=== PATIENT | female | born 1980 | race Caucasian/White ===

== ENCOUNTER 2018-01-26 15:00 | Inpatient (IN) | payer OTHER ==
[2018-01-26] MEDS ORDERED: LACTATED RINGERS 1,000 ML ONE (15:41)
[2018-01-26] MEDS ORDERED: POLYCILLIN/NS 2 GM/100 ML 2 GM/100 ML BAG IV ONE (16:01)
[2018-01-26] MEDS ORDERED: AMPICILLIN/NS 1 GM/50 ML 1 GM/50 ML BAG IV SCH (16:01)
[2018-01-26] MEDS ORDERED: LACTATED RINGERS 1,000 ML IV SCH ×2 (17:00→19:00)
[2018-01-26 17:57] LABS: Hematocrit 39.9 % (30.3-42.9); Hemoglobin 13.9 gm/dl (10.1-14.3); Mean Corpuscular HGB Conc 35 % (30-34); Mean Corpuscular Hemoglobin 32 pg (28-32); Mean Corpuscular Volume 93 fl (79-97); Platelet Count 209 K/mm3 (140-440); Red Blood Count 4.28 M/mm3 (3.65-5.03); Red Cell Distribution Width 12.8 % (13.2-15.2)
[2018-01-26] MEDS ORDERED: XYLOCAINE 2% INFILTRATI ONE (18:07)
[2018-01-26] MEDS ORDERED: BRETHINE SUB-Q PRN (18:07)
[2018-01-26] MEDS ORDERED: ePHEDrine SULFATE IV PRN (18:07)
[2018-01-26] MEDS ORDERED: SUBLIMAZE IV PRN (18:07)
[2018-01-26] MEDS ORDERED: MINERAL OIL PO PRN (18:07)
--- NOTE | 2018-01-26 18:15 | History and Physical Report ---
History of Present Illness Date of examination: 01/26/18 Date of admission: 01/26/18 16:55 Chief complaint: regular contractions History of present illness: 37y/o @ 37+6 weeks presents with regular uterine contractions and advanced cervical dilation. She denies leakage of fluid. care initiated care in the first trimester. Her course is complicated by AMA , GDMA2 (insulin-dependent); Left polycystic kidney. GBS negative. The patient is a patient of [facility] but was taken to [facility] for active labor. Past History Past Medical History: other (gestational diabetes) Past Surgical History: no surgical history Social history: - Obstetrical History Expected Date of Delivery: 02/10/18 Actual Gestation: 37 Week(s) 6 Day(s) : 7 Para: 4 Hx # Term Pregnancies: 4 Number of Pregnancies: 0 Spontaneous Abortions: 2 Induced : 4 Medications and Allergies Allergies Allergy/AdvReac Type Severity Reaction Status Date / Time No Known Allergies Allergy Verified 01/26/18 15:14 Home Medications Medication Instructions Recorded Confirmed Last Taken Type Acetaminophen/Codeine [Tylenol #3] 1 tab PO Q6H PRN #20 tab 10/09/14 Unknown Rx Ibuprofen [Motrin] 600 mg PO Q8H PRN #60 tablet 10/09/14 Unknown Rx RX: metFORMIN [Glucophage] 500 mg PO BID #60 tablet 10/09/14 Unknown Rx RX: metFORMIN [Glucophage] 500 mg PO DAILY #30 tablet 10/09/14 Unknown Rx Active Meds: Active Medications Ampicillin Sodium (Ampicillin/Ns 1 Gm/50 Ml) 1 gm in 50 mls @ 100 mls/hr IV Q4HR KRISTOFER; Protocol Lactated Ringer's (Lactated Ringers) 1,000 mls @ 125 mls/hr IV DIRECT KRISTOFER Review of Systems Genitourinary: pelvic pain, contractions - Vital Signs Vital signs: Vital Signs Pulse Pulse Ox 78 97 01/26/18 15:15 01/26/18 15:15 Temp Pulse Resp BP Pulse Ox 98.8 F 78 24 120/80 96 01/26/18 15:25 01/26/18 18:12 01/26/18 15:25 01/26/18 15:25 01/26/18 18:12 - Physical Exam Breasts: Positive: deferred Cardiovascular: Regular rate Lungs: Positive: Clear to auscultation - Obstetrical FHR: category 1 Uterine Contraction Monitor Mode: External Results Result Diagrams: 01/26/18 16:30 Abnormal lab results 01/26/18 Range/Units 16:30 MCHC 35 H (30-34) % RDW 12.8 L (13.2-15.2) % All other labs normal. Assessment and Plan - Patient Problems (1) Active labor at term Current Visit: Yes Status: Acute Plan to address problem: admit in active labor to L&D anticipate a vaginal delivery (2) Advanced maternal age (AMA) in Current Visit: Yes Status: Acute (3) Gestational diabetes Current Visit: Yes Status: Acute (4) polycystic kidney diagnosed prenatally Current Visit: Yes Status: Acute
[2018-01-26] MEDS ORDERED: PITOCin/NS 20 UNIT/1000ML DRIP 20 UNITS/1,000 ML BAG IV SCH (19:00)
[2018-01-26] MEDS ORDERED: TYLENOL PO PRN (19:37)
[2018-01-26] MEDS ORDERED: PHENERGAN PO PRN (19:37)
[2018-01-26] MEDS ORDERED: TUCKS PAD TP PRN (19:37)
[2018-01-26] MEDS ORDERED: ZOFRAN IV PRN (19:37)
[2018-01-26] MEDS ORDERED: MILK OF MAGNESIA PO PRN (19:37)
[2018-01-26] MEDS ORDERED: BENADRYL PO PRN (19:37)
[2018-01-26] MEDS ORDERED: PHENERGAN PR PRN (19:37)
[2018-01-26] MEDS ORDERED: LANSINOH TP PRN (19:37)
[2018-01-26] MEDS ORDERED: DULCOLAX PR PRN (19:37)
--- NOTE | 2018-01-26 19:37 | Procedure Note ---
OB Delivery Note - Delivery Date of Delivery: 01/26/18 Surgeon: MIYA FAJARDO Estimated blood loss: 100cc - Vaginal Delivery presentation: vertex Delivery position: OA Intrapartum events: none Delivery augmentation: rupture of membranes Delivery monitor: external FHT Route of delivery: Delivery placenta: spontaneous Delivery cord: 3 umbilical vessels Episiotomy: none Delivery laceration: none Delivery comments: Patient progressed to complete complete +2 and post deliver a liveborn male infant with Apgars of 8 and 9 weight 6 lbs. 7 oz. After delivery of the head the shoulders delivered without difficulty. The cord was clamped and cut 2 and the was placed on the patient's abdomen. The placenta delivered spontaneously intact with a three-vessel cord. No lacerations were noted. Estimated blood loss is 100 mL - Infant A at 1 minute: 8 at 5 minutes: 9 Infant Gender: Male (weight 6 lbs. 10 oz.)
[2018-01-26] MEDS ORDERED: SODIUM CHLORIDE FLUSH SYRINGE 10 ML IV NR (20:00)
[2018-01-26] MEDS: MOTRIN PO SCH (20:09)
[2018-01-26] MEDS ORDERED: METHERGINE IM ONE (22:15)
[2018-01-27] MEDS: NORCO 5/325 PO PRN ×2 (07:50→14:30)
[2018-01-27 08:16] LABS: Hematocrit 35.8 % (30.3-42.9); Hemoglobin 12.2 gm/dl (10.1-14.3)
--- NOTE | 2018-01-27 08:48 | Progress Note ---
Assessment and Plan - Patient Problems (1) Active labor at term Current Visit: Yes Status: Acute Plan to address problem: continue to monitor vaginal bleeding closely (2) Advanced maternal age (AMA) in Current Visit: Yes Status: Acute (3) Gestational diabetes Current Visit: Yes Status: Acute (4) polycystic kidney diagnosed prenatally Current Visit: Yes Status: Acute Subjective - Subjective Date of service: 01/27/18 Interval history: the patient experienced vaginal bleeding. Determined that patient may not have received adequate amount of pitocin. Bleeding is currently intermittent now. Pain is better controlled. Patient reports: appetite normal, voiding normally, pain well controlled : doing well Objective - Vital Signs Latest vital signs: Vital Signs Temp Temp Pulse Resp BP BP Pulse Ox 01/27/18 06:06 98.5 F 75 18 106/56 01/27/18 00:00 97.7 F 82 18 122/63 01/26/18 22:59 81 132/70 01/26/18 22:47 67 89 01/26/18 22:29 75 106/59 01/26/18 22:14 85 102/55 01/26/18 21:59 73 108/59 01/26/18 21:32 86 98/53 01/26/18 21:17 106 H 94/52 01/26/18 21:03 98.3 F 77 18 92/48 92/48 01/26/18 20:48 83 18 110/55 110/55 01/26/18 20:17 72 18 108/55 108/55 01/26/18 20:03 72 18 108/69 108/69 01/26/18 19:48 97.3 F L 150 H 50 H 01/26/18 19:47 89 18 145/69 145/69 18 19:34 103 H 142/88 18 19:05 74 150/79 18 18:27 88 95 18 18:24 71 90 18 18:21 83 97 18 18:17 65 99 18 18:12 78 96 18 18:07 75 100 18 18:01 86 97 18 17:57 84 97 18 17:52 74 97 18 17:46 72 98 18 17:42 80 97 18/18 17:36 74 98 18/18 17:32 69 98 18/18 17:28 78 93 1818 17:27 79 97 18/18 17:22 81 91 18/18 17:17 75 98 1818 17:14 77 94 1818 17:11 73 98 1818 17:09 83 92 1818 17:07 72 98 18 17:02 79 98 1818 16:56 79 98 1818 16:55 70 94 1818 16:52 81 98 1818 16:46 80 98 1818 16:42 72 98 1818 16:36 72 98 1818 16:31 70 98 1818 16:05 74 100 18 16:00 80 97 1818 15:55 80 97 18 15:50 83 98 18 15:45 74 98 1818 15:40 82 98 1818 15:35 80 97 1818 15:30 75 99 1818 15:25 98.8 F 82 24 120/80 99 1818 15:21 83 120/80 1818 15:20 80 98 1818 15:15 78 97 Intake and Output 18 //18 18 22:59 06:59 14:59 Intake Total 960 Output Total 800 700 Balance -800 260 Intake: Oral 720 Intake, Free Water 240 Output: Urine 800 700 Indwelling Catheter 800 700 Other: Total, Intake Amount 480 Total, Output Amount 800 700 # Voids Indwelling Catheter 1 Weight 80.286 kg Estimated Blood Loss 100 - Exam Uterus: Present: normal, firm - Labs Labs: Abnormal lab results 01/26/18 Range/Units 16:30 MCHC 35 H (30-34) % RDW 12.8 L (13.2-15.2) %
--- NOTE | 2018-01-27 08:51 | Discharge Summary ---
Providers - Providers Date of Admission: 01/26/18 16:55 Date of discharge: 01/28/18 Attending physician: MIYA FAJARDO Primary care physician: MIYA FAJARDO Hospitalization Reason for admission: active labor Delivery: complications: uterine atony Discharge diagnosis: IUP at term delivered [place] baby: male Hospital course: Patient was admitted in active labor and had a . Experienced a hemorrhage. Patient received methergine with improvement in her symptoms. Remainder of course was uncomplicated Condition at discharge: Good Disposition: DC-01 TO HOME OR SELFCARE - Discharge Diagnoses (1) Active labor at term Status: Acute (2) Advanced maternal age (AMA) in Status: Acute (3) Gestational diabetes Status: Acute (4) polycystic kidney diagnosed prenatally Status: Acute Plan - Discharge Medications Prescriptions: HYDROcodone/APAP 5-325 [Gan[place] 5/325] 1 each PO Q6HR PRN #30 tablet PRN Reason: Pain Ibuprofen [Motrin] 800 mg PO Q8HR PRN #60 tablet PRN Reason: Pain, Mild (1-3) - Provider Discharge Summary Activity: no sex for 6 weeks, no heavy lifting 4 weeks, no strenuous exercise Diet: routine Instructions: routine Additional instructions: [] Smoking cessation referral if applicable(refer to patient education folder for contact #) [] Refer to [facility] Booklet Call your doctor immediately for: * Fever > 100.5 * Heavy vaginal bleeding ( >1 pad per hour) * Severe persistent headache * Shortness of breath * Reddened, hot, painful area to leg or breast * schedule visit in 4 weeks * [facility]'s obgyn * [address] * [phone] - Follow up plan
[2018-01-27] MEDS: MOTRIN PO SCH ×2 (12:45→18:00)
[2018-01-28] MEDS: MOTRIN PO SCH ×3 (00:27→12:47)
[2018-01-28] MEDS: NORCO 5/325 PO PRN (08:40)
[2018-01-28 16:47] VITALS: BP 111/74
== END 2018-01-28 18:20 | disposition home or self-care (01) | DRG 775 ==
LOC: TRG 15:00 → LD 16:55 → OB 01-27 00:01
PROVIDERS: ADMIT Obstetrics & Gynecology; ATTEND Obstetrics & Gynecology
PROC: 10E0XZZ Delivery of Products of Conception, External Approach (ICD-10-PCS; principal; 2018-01-26)
DX: O26.833 Pregnancy related renal disease, third trimester (principal); Q61.3 Polycystic kidney, unspecified; O09.523 Supervision of elderly multigravida, third trimester; O24.429 Gestational diabetes mellitus in childbirth, unspecified control; Z37.0 Single live birth; Z3A.37 37 weeks gestation of pregnancy; Z79.899 Other long term (current) drug therapy
CPT/HCPCS: 36415; 82962; 85014; 85018; 85027; 86592; 86850; 86900; 86901; 99211; G0463; J0290; J2210; J2590; J3010; J7120